=== PATIENT | female | born 1990 | race Two or more races ===

== ENCOUNTER 2024-04-15 14:15 | Emergency (ER) | payer OTHER ==
[~2024-04-15] VITALS: Ht 154.9 cm; Wt 62.6 kg
[2024-04-15 17:38] LABS: BASOPHILS % (AUTO) 0.5 % (0.0-2.0); EOSINOPHILS # (AUTO) 0.1 K/uL (0.0-0.7); EOSINOPHILS % (AUTO) 0.8 % (0.0-6.0); HEMATOCRIT 40 % (33-45); HEMOGLOBIN 13.6 g/dL (11.5-14.8); MEAN CORPUSCULAR HEMOGLOBIN 28 PG (26.0-33.0); MEAN CORPUSCULAR HGB CONC 34 g/dl (31.0-36.0); MEAN CORPUSCULAR VOLUME 83 fL (82-100); MONOCYTES # (AUTO) 0.5 K/uL (0.1-1.30); MONOCYTES % (AUTO) 5.7 % (2.0-12.0); PLATELET COUNT (AUTO) 260 K/uL (150-450); RED BLOOD CELL COUNT(AUTO) 4.86 MIL/uL (4.0-5.2); RED CELL DISTRIBUTION WIDTH 13.2 % (11.5-15.0); WHITE BLOOD COUNT (AUTO) 8.6 K/uL (4.3-11.0)
[2024-04-15 17:50] LABS: CALCIUM, SERUM 8.9 mg/dL (8.5-10.1); CREATININE 0.7 mg/dL (0.6-1.3); POTASSIUM 3.5 mmol/L (3.5-5.1)
[2024-04-15] MEDS ORDERED: LIDOCAINE 5% (PATCH) 1 EA PATCH TP ONE (17:52)
[2024-04-15] MEDS: LIDOCAINE 5% (PATCH) 1 EA PATCH TP SCH (17:53)
[2024-04-15] MEDS ORDERED: NAPROXEN 250 MG TABLET ONE (17:53)
[2024-04-15] MEDS: NAPROXEN 250 MG TABLET PO ONE (17:53)
[2024-04-15 19:08] LABS: APPEARANCE,URINE Slightly Cloudy (CLEAR); BILIRUBIN,URINE Negative (NEGATIVE); BLOOD, URINE Negative Ery/uL (NEGATIVE); COLOR,URINE YELLOW (YELLOW); KETONES,URINE 80 mg/dL (NEGATIVE); LEUKOCYTE ESTERASE ,URINE Negative (NEGATIVE); NITRITE, URINE Negative (NEGATIVE); PROTEIN,URINE Negative (NEGATIVE); UGLUCOSE Negative (NEGATIVE); UROBILINOGEN,URINE 0.2 EU/dL (0.2)
[2024-04-15 19:12] LABS: PREGNANCY TEST URINE QUAL POSITIVE (NEGATIVE)
[2024-04-15 19:37] VITALS: BP 118/75; TEMP 98.7; O2SAT 100
[2024-04-15 20:00] LABS: ADD URINE CULTURE NO; BACTERIA,URINE Few /HPF (None Seen); RBC,URINE 0-2 /HPF (0-2)
== END 2024-04-15 19:37 | disposition home or self-care (01) ==
LOC: ER 14:21
DX: O26.891 Other specified pregnancy related conditions, first trimester (principal); R20.2 Paresthesia of skin; R25.3 Fasciculation; R53.1 Weakness; M54.59 Other low back pain; Z3A.01 Less than 8 weeks gestation of pregnancy
CPT/HCPCS: 36415; 80048-TC; 81001; 83735-TC; 84703-TC; 85025-TC